=== PATIENT | male | born 1985 | race Caucasian/White ===

== ENCOUNTER 2017-11-25 11:04 | Emergency (ER) | payer OTHER ==
[~2017-11-25] VITALS: Ht 182.9 cm; Wt 79.4 kg
[~2017-11-25 11:04] MED LIST: ALBU90I INH; AMOCLA875 PO; AMOX500 PO; CEPH500 PO; CETYLOZ PO; HYDACE5 PO; IBUP600 PO; IBUP800 PO; LIDO2L MM; Norco 5-325 Ta1 EACH PO; PENVK500 PO; PROCODE120 PO; Prednisone20 MG PO; SULTRIDS PO; TRAM50 PO
[2017-11-25 12:32] LABS: BASOPHILS ABSOLUTE AUTO 0.04 K/mm3 (0.00-0.23); BASOPHILS PERCENT AUTO 1 % (0-2); EOSINOPHILS ABSOLUTE AUTO 0.09 K/mm3 (0.00-0.68); EOSINOPHILS PERCENT AUTO 1 % (0-6); Hematocrit 43.2 % (37.0-53.0); Hemoglobin 14.7 g/dL (13.5-17.5); IMMATURE GRAN ABSOLUTE AUTO 0.04 K/mm3 (0.00-0.10); IMMATURE GRAN PERCENT AUTO 1 % (0-1); LYMPHOCYTES ABSOLUTE AUTO 1.37 K/mm3 (0.84-5.20); LYMPHOCYTES PERCENT AUTO 16 % (21-46); MONOCYTES ABSOLUTE AUTO 0.93 K/mm3 (0.16-1.47); MONOCYTES PERCENT AUTO 11 % (4-13); Mean Corpuscular HGB 29.3 pg (26.0-34.0); Mean Corpuscular Volume 86 fL (80-100); Mean Platelet Volume 9.4 fL (9.1-12.4); NEUTROPHILS ABSOLUTE AUTO 5.93 K/mm3 (1.96-9.15); NEUTROPHILS PERCENT AUTO 71 % (41-73); Platelet Count 202 K/mm3 (150-400); RDW Coefficient Variation 12.1 % (11.7-14.2); RDW Standard Deviation 38.4 fL (35.1-46.3); Red Blood Cell Count 5.01 M/mm3 (4.30-5.90)
[2017-11-25 12:49] LABS: Alanine Aminotransfer (ALT/SGP 36 U/L (12-78); Albumin, Blood 3.8 g/dL (3.4-5.0); Albumin/Globulin Ratio 0.8 (0.8-1.8); Alk Phos 88 U/L (50-136); Amylase, Blood 42 U/L (25-115); Anion Gap 6 mmol/L (6-16); Aspartate Aminotrans (AST/SGOT 19 U/L (12-37); Bilirubin, Total 0.7 mg/dL (0.1-1.0); Blood Urea Nitrogen 12 mg/dL (8-24); Bun/Creatinine Ratio 14.1 (12.0-20.0); CO2, Blood 27 mmol/L (21-32); Calcium, Blood 8.9 mg/dL (8.5-10.1); Chloride, Blood 102 mmol/L (98-108); Creatinine, Blood 0.85 mg/dL (0.60-1.20); Globulin, Blood 4.9 g/dL (2.2-4.0); Glomerular Filtration Rate >60 (60-); Glucose, Blood 91 mg/dL (70-99); Potassium, Blood 4.3 mmol/L (3.5-5.5); Sodium, Blood 135 mmol/L (136-145); Total Protein, Blood 8.7 g/dL (6.4-8.2)
[2017-11-25] MEDS ORDERED: Cleocin HCl300 MG PO (13:34)
== END 2017-11-25 14:45 | disposition home or self-care (01) ==
LOC: ER 11:04
PROVIDERS: Physician Assistant
DX: L03.211 Cellulitis of face (principal); F17.210 Nicotine dependence, cigarettes, uncomplicated
CPT/HCPCS: 36415; 70491; 80053; 82150; 85025; 87430; 96365; 99284-25; Q9967

== ENCOUNTER 2017-11-27 19:07 | Emergency (ER) | payer OTHER ==
[~2017-11-27] VITALS: Ht 182.9 cm; Wt 79.4 kg
[~2017-11-27 19:07] MED LIST changes: +Cleocin HCl300 MG PO
[2017-11-27 19:59] LABS: BASOPHILS ABSOLUTE AUTO 0.04 K/mm3 (0.00-0.23); BASOPHILS PERCENT AUTO 0 % (0-2); EOSINOPHILS ABSOLUTE AUTO 0.04 K/mm3 (0.00-0.68); EOSINOPHILS PERCENT AUTO 0 % (0-6); Hematocrit 39.2 % (37.0-53.0); Hemoglobin 13.8 g/dL (13.5-17.5); IMMATURE GRAN PERCENT AUTO 1 % (0-1); LYMPHOCYTES PERCENT AUTO 11 % (21-46); MONOCYTES PERCENT AUTO 9 % (4-13); Mean Corpuscular HGB 29.6 pg (26.0-34.0); Mean Corpuscular HGB Conc 35.2 g/dL (31.5-36.5); Mean Corpuscular Volume 84 fL (80-100); Mean Platelet Volume 9.3 fL (9.1-12.4); NEUTROPHILS ABSOLUTE AUTO 9.97 K/mm3 (1.96-9.15); NEUTROPHILS PERCENT AUTO 78 % (41-73); Platelet Count 226 K/mm3 (150-400); RDW Coefficient Variation 11.9 % (11.7-14.2); RDW Standard Deviation 36.3 fL (35.1-46.3); Red Blood Cell Count 4.67 M/mm3 (4.30-5.90); White Blood Cell Count 12.75 K/mm3 (4.00-11.30)
[2017-11-27 20:06] LABS: Alanine Aminotransfer (ALT/SGP 33 U/L (12-78); Albumin, Blood 3.6 g/dL (3.4-5.0); Albumin/Globulin Ratio 0.7 (0.8-1.8); Alk Phos 110 U/L (50-136); Anion Gap 12 mmol/L (6-16); Aspartate Aminotrans (AST/SGOT 20 U/L (12-37); Bilirubin, Total 0.8 mg/dL (0.1-1.0); Blood Urea Nitrogen 13 mg/dL (8-24); Bun/Creatinine Ratio 12.4 (12.0-20.0); CO2, Blood 22 mmol/L (21-32); Calcium, Blood 9.6 mg/dL (8.5-10.1); Chloride, Blood 99 mmol/L (98-108); Creatinine, Blood 1.05 mg/dL (0.60-1.20); Globulin, Blood 4.9 g/dL (2.2-4.0); Glomerular Filtration Rate >60 (60-); Glucose, Blood 129 mg/dL (70-99); Potassium, Blood 3.7 mmol/L (3.5-5.5); Sodium, Blood 133 mmol/L (136-145); Total Protein, Blood 8.5 g/dL (6.4-8.2)
[2017-11-27] MEDS ORDERED: Prednisone20 MG PO (21:41)
[2017-11-28] MEDS ORDERED: Percocet 5-3251 EACH PO (08:57)
== END 2017-11-27 22:00 | disposition home or self-care (01) ==
LOC: ER 19:07
PROVIDERS: Emergency Medicine
DX: L03.211 Cellulitis of face (principal); L03.221 Cellulitis of neck; F17.210 Nicotine dependence, cigarettes, uncomplicated
CPT/HCPCS: 36415; 70491; 80053; 83605; 85025; 96361; 96374; 99284-25; J1885; J7030; Q9967

== ENCOUNTER 2017-11-28 08:23 | Day surgery (SDC) | payer OTHER ==
[2017-11-28] MEDS ORDERED: Percocet 5-3251 EACH PO (08:57)
== END 2017-11-28 16:21 | disposition home or self-care (01) ==
LOC: ATC 08:23
DX: L03.211 Cellulitis of face (principal); L03.221 Cellulitis of neck
CPT/HCPCS: 96365

== ENCOUNTER 2017-11-28 23:05 | Emergency (ER) | payer OTHER ==
[~2017-11-28] VITALS: Ht 182.9 cm; Wt 86.2 kg
[~2017-11-28 23:05] MED LIST changes: +Percocet 5-3251 EACH PO
== END 2017-11-29 00:06 | disposition home or self-care (01) ==
LOC: ER 23:05
DX: L03.221 Cellulitis of neck (principal); Z79.899 Other long term (current) drug therapy; Z79.52 Long term (current) use of systemic steroids; F17.210 Nicotine dependence, cigarettes, uncomplicated
CPT/HCPCS: 96365; 99283-25

== ENCOUNTER 2018-08-18 10:43 | Emergency (ER) | payer OTHER ==
[~2018-08-18] VITALS: Ht 182.9 cm; Wt 81.7 kg
[2018-08-18] MEDS ORDERED: Prednisone20 MG PO (11:32)
== END 2018-08-18 11:35 | disposition home or self-care (01) ==
LOC: ER 10:43
DX: G51.0 Bell's palsy (principal); Z79.52 Long term (current) use of systemic steroids; F17.210 Nicotine dependence, cigarettes, uncomplicated
CPT/HCPCS: 99283

== ENCOUNTER 2018-09-20 01:32 | Emergency (ER) | payer OTHER ==
[~2018-09-20] VITALS: Ht 182.9 cm; Wt 79.4 kg
[2018-09-20] MEDS ORDERED: Bactrim Ds Tab1 EACH PO (05:22)
== END 2018-09-20 05:35 | disposition home or self-care (01) ==
LOC: ER 01:32
DX: L02.415 Cutaneous abscess of right lower limb (principal); F17.210 Nicotine dependence, cigarettes, uncomplicated
CPT/HCPCS: 10060; 90471; 90714; 99283-25

== ENCOUNTER 2022-08-24 09:20 | Emergency (ER) | payer OTHER ==
[~2022-08-24] VITALS: Ht 182.9 cm; Wt 83.9 kg
[~2022-08-24 09:20] MED LIST changes: +Bactrim Ds Tab1 EACH PO
[2022-08-24] MEDS ORDERED: Cephalexin500 M1 PO (10:49)
[2022-08-24] MEDS ORDERED: Percocet 5-3251 EACH PO (10:55)
[2022-08-24 11:15] VITALS: BP 131/81
== END 2022-08-24 11:25 | disposition home or self-care (01) ==
LOC: ER 09:20
DX: L03.116 Cellulitis of left lower limb (principal); Z87.891 Personal history of nicotine dependence
CPT/HCPCS: 96374; 99282-25; A9270; J1885; J7030

== ENCOUNTER → 2022-11-26 | Outpatient (CLI) | payer OTHER ==
[~2022-11-26] MED LIST changes: +Cephalexin500 M1 PO
== END ==
LOC: LAB 18:04 → LAB SHORT 18:04
DX: L03.119 Cellulitis of unspecified part of limb (principal)
CPT/HCPCS: 87070; 87075; 87205

== ENCOUNTER 2024-05-26 00:19 | Emergency (ER) | payer OTHER ==
[~2024-05-26] VITALS: Ht 182.9 cm; Wt 81.7 kg
[~2024-05-26 00:19] MED LIST changes: +METPRE4DP PO
[2024-05-26 00:21] VITALS: BP 155/97
== END 2024-05-26 00:41 | disposition home or self-care (01) ==
LOC: ER 00:19
DX: T75.4XXA Electrocution, initial encounter (principal); S21.139A Puncture wound without foreign body of unspecified front wall of thorax without penetration into thoracic cavity, initial encounter; Y35.831A Legal intervention involving a conducted energy device, law enforcement official injured, initial encounter; Z87.891 Personal history of nicotine dependence
CPT/HCPCS: 93005; 93010; 99283-25

== ENCOUNTER → 2024-08-23 | Outpatient (CLI) | payer OTHER | LOC: LAB 16:30 → LAB SHORT 16:30 | DX: L08.9 Local infection of the skin and subcutaneous tissue, unspecified (principal) | CPT/HCPCS: 87070; 87077; 87186; 87205 ==